=== PATIENT | female | born 1985 | race Caucasian/White ===

== ENCOUNTER 2017-11-04 12:55 | Emergency (ER) | payer MEDICAID ==
[~2017-11-04] VITALS: Ht 170.2 cm; Wt 110.4 kg
[2017-11-04 13:19] VITALS: BP 112/94
== END 2017-11-04 15:52 | disposition home or self-care (01) ==
LOC: EDBD 12:55 → ED 12:55
DX: J20.9 Acute bronchitis, unspecified (principal); E11.9 Type 2 diabetes mellitus without complications

== ENCOUNTER 2017-11-23 20:07 | Emergency (ER) | payer MEDICAID ==
[~2017-11-23] VITALS: Ht 167.6 cm; Wt 112.0 kg
[2017-11-23 20:15] VITALS: Ht 167.6 cm; Wt 112.0 kg
[2017-11-23 21:34] LABS: CALCIUM 8.7 mg/dL (8.5-10.1); CARBON DIOXIDE 28.3 mmol/L (21-32); CHLORIDE SERUM 102 mmol/L (98-107); CREATININE SERUM 0.7 mg/dL (0.6-1.0); GFR1 > 60 mL/min; GLUCOSE SERUM 125 mg/dL (74-106); POTASSIUM SERUM 3.2 mmol/L (3.5-5.1); SODIUM SERUM 137 mmol/L (136-145)
[2017-11-23 21:38] LABS: ALBUMIN 3.5 g/dL (3.4-5.0); ALKALINE PHOSPHATASE 90 U/L (46-116); ALT/SGPT 38 U/L (14-59); AST/SGOT 25 U/L (15-37); BILIRUBIN TOTAL 0.22 mg/dL (0.20-1.00); TOTAL PROTEIN, SERUM 8.2 g/dL (6.4-8.2)
[2017-11-23 22:48] VITALS: BP 122/68
== END 2017-11-23 22:48 | disposition short-term general hospital (02) ==
LOC: ED 20:07
PROVIDERS: Emergency Medicine
DX: R20.0 Anesthesia of skin (principal); R51 Headache; R42 Dizziness and giddiness